=== PATIENT | male | born 1945 | race Caucasian/White ===

== ENCOUNTER → 2019-04-19 | Outpatient (CLI) | payer OTHER ==
[2019-04-19 06:46] LABS: African American GFR (CKD) >90 (>60 ml/min/1.73 sqM); Blood Urea Nitrogen 26 mg/dL (9-20)
--- NOTE | 2019-04-19 08:23 | CT ---
EXAMINATION TYPE: CT soft tissue neck wo/w con DATE OF EXAM: 04/19/2019 COMPARISON: None HISTORY: Enlarged lymph nodes CT DLP: 947.8 mGycm CONTRAST: CT scan of the neck is performed without and with IV Contrast, patient injected with 100 mL of Isovue 300. Unenhanced followed by Contrast enhanced CT of the neck was performed from the skull base through the lung apices. Markers are placed at the sites of clinical concern bilaterally. The markers correspond to the bilateral submandibular glands. AIRWAY: The supraglottic, glottic, and subglottic portions of the airway appear patent and free of mass. SALIVARY GLANDS: The submandibular and parotid glands are free of mass or inflammatory process. THYROID GLAND: No nodules or masses seen. LYMPH NODES: No adenopathy seen greater than 1cm. LUNG APICES: No nodule or mass is seen. OTHER: Vascular structures are patent. No significant degenerative change of the cervical spine. N o abscess seen. IMPRESSION: 1. No distinct abnormality seen at this time.
== END | disposition home or self-care (01) ==
LOC: RADCTMAIN 05:53
PROVIDERS: ATTEND Physician Assistant Medical
DX: R59.9 Enlarged lymph nodes, unspecified (principal)
CPT/HCPCS: 82565; 84520; 70492; 36415; Q9967

== ENCOUNTER → 2024-02-21 | Outpatient (CLI) | payer OTHER ==
--- NOTE | 2024-02-22 09:24 | CT ---
EXAMINATION TYPE: CT chest wo con DATE OF EXAM: 02/21/2024 COMPARISON: 04/19/2019 CT neck HISTORY: soft tissue mass CT DLP: 434.4 mGycm, Automated exposure control for dose reduction was used. CONTRAST: Performed injected with 0 mL of Isovue 300. TECHNIQUE: Axial images were obtained at 5 mm thick sections. Reconstructed images are reviewed on [employer] computer in the coronal plane. FINDINGS: Portion of the thyroid visualized is normal. No suspicious lung nodules or focal infiltrates are present. No enlarged mediastinal or hilar adenopathy is evident. The ascending aorta diameter at the level o f the main pulmonary artery is 4.0 cm. The main pulmonary artery diameter at the bifurcation is 2.9 cm. Some coronary artery calcification is present. Limited CT sections are obtained through the upper abdomen. Abdomen is essentially unremarkable. Scol iosis through the thoracic spine. BB is placed over a palpable region on the anterior right medial chest, series 3 image 36. No underly ing CT abnormality is evident. This is a costo sternal junction and potentially could account for the palpable region. Slight asymmetry is present. Findings could be related to forces related to the sco liosis causing this appearance.. IMPRESSION: 1. No acute pulmonary process. 2. Slight prominence of the osteochondral sternal junction at the level of the palpable region. [place] us abnormality is not evident. Follow-up can be performed as clinically indicated.
== END | disposition home or self-care (01) ==
LOC: RADCTMAIN 06:46
PROVIDERS: ATTEND Family Medicine
DX: M79.89 Other specified soft tissue disorders (principal)
CPT/HCPCS: 71250